=== PATIENT | female | born 1995 | race African-American/Black ===

== ENCOUNTER 2022-10-11 14:54 | Outpatient (CLI) | payer OTHER, SELFPAY ==
--- NOTE | ~2022-10-11 | US_ITS ---
EXAMINATION: US pelvic complete w TV DATE: 10/11/2022 15:32 INDICATION: Abnormal uterine bleeding Comparison:No prior studies for comparison. TECHNIQUE: Multiple transabdominal and endovaginal sonographic images of the pelvis performed. FINDINGS: The uterus measures 9 x 3.4 x 6.8 cm. There are uterine fibroids, largest paracentral to th e left measuring 4.4 x 3.8 x 3.7 cm. The endometrial complex measures 7 mm. The right ovary measures 2.6 x 1.7 x 2.1 cm and the left ovary is not visualized. There is normal Dop pler signal in the right ovary. There is trace free fluid in the pelvis. There are no abnormal masses seen on either side. IMPRESSION: 1. Multiple uterine fibroids, largest measuring 4.4 cm greatest dimension. Reviewed, dictated and finalized at location B. LAB MANAGER
== END 2022-10-11 14:55 ==
LOC: MICIMG 14:57
PROVIDERS: PCP Nurse Practitioner; Visit Provider Nurse Practitioner
DX: N93.8 Other specified abnormal uterine and vaginal bleeding (principal); D25.9 Leiomyoma of uterus, unspecified
CPT/HCPCS: 76830; 76856